=== PATIENT | female | born 1990 | race Caucasian/White ===

== ENCOUNTER → 2017-04-16 | Outpatient (CLI) | payer OTHER | LOC: BMCIMAGING 10:53 | PROVIDERS: ATTEND Podiatrist Foot & Ankle Surgery | DX: Q74.2 Other congenital malformations of lower limb(s), including pelvic girdle (principal) ==

== ENCOUNTER → 2017-09-27 | Outpatient (CLI) | payer OTHER | LOC: BMCIMAGING 14:54 | PROVIDERS: ATTEND Internal Medicine Endocrinology, Diabetes & Metabolism | DX: E04.1 Nontoxic single thyroid nodule (principal) | CPT/HCPCS: 76536-PO ==